=== PATIENT | female | born 1945 | race Caucasian/White ===

== ENCOUNTER 2023-12-03 11:36 | Outpatient (CLI) | payer MEDICARE, SELFPAY ==
--- NOTE | ~2023-12-03 | XR_ITS ---
Right Knee Technique: AP, lateral, and sunrise views were obtained. Clinical History: Pain Findings: No fracture or dislocation is seen. Right knee arthroplasty in place. No hardware complicat ion is evident. Soft tissues are unremarkable. No joint effusion is seen. Impression: No acute abnormality. Right knee arthroplasty in place. Reviewed, dictated and finalized at location . D ADMINISTRATIVE ASSISTANT Impression: No acute abnormality. Right knee arthroplasty in place.
--- NOTE | ~2023-12-03 | XR_ITS ---
Left Knee Technique: AP, lateral, and sunrise views were obtained. Clinical History: Pain Findings: No fracture or dislocation is seen. There is moderate to advanced tricompartmental degenera tive change.. Soft tissues are unremarkable. No joint effusion is seen. Impression: Moderate to advanced tricompartmental osteoarthritis. Reviewed, dictated and finalized at location . ENT CONSUMER MARKETER Impression: Moderate to advanced tricompartmental osteoarthritis.
--- NOTE | ~2023-12-03 | XR_ITS ---
XR hip LT min 2V DATE: 12/03/2023 12:25 INDICATION: Left hip pain. Neuropathy, ataxia for 3 months. TECHNIQUE: AP and lateral views of left hip COMPARISON: None FINDINGS: There is prominent joint space narrowing and spurring consistent with severe left hip prima ry osteoarthritis. No fracture or dislocation, avascular necrosis or bone destruction is detected. IMPRESSION: Moderately severe left hip osteoarthritis Reviewed, dictated and finalized at location L. MBLY CLEANER
== END 2023-12-03 11:37 | disposition home or self-care (01) ==
PROVIDERS: PCP Internal Medicine; Visit Provider Internal Medicine
DX: R27.0 Ataxia, unspecified (principal); M26.629 Arthralgia of temporomandibular joint, unspecified side; G60.9 Hereditary and idiopathic neuropathy, unspecified; Z96.651 Presence of right artificial knee joint; M17.12 Unilateral primary osteoarthritis, left knee; M16.12 Unilateral primary osteoarthritis, left hip
CPT/HCPCS: 73502; 73562

== ENCOUNTER 2023-12-10 08:00 | Outpatient (CLI) | payer MEDICARE, SELFPAY ==
--- NOTE | ~2023-12-10 | MR_ITS ---
MRI of the brain Clinical History: Ataxia Technique: Axial and sagittal T1-weighted images were acquired. These were followed by axial T2-weigh scarlett, diffusion weighted, gradient, and FLAIR images. Findings: There is no acute infarct, intracranial hemorrhage or mass lesion. There is extensive chron ic white matter changes of the periventricular white matter and swapna. Ventricles and subarachnoid spaces are unremarkable. Orbits are unremarkable. Paranasal sinuses and m astoid air cells are clear. Major intracranial flow voids are intact. Sagittal midline structures are intact. IMPRESSION: No acute infarct, intracranial hemorrhage, mass lesion. Extensive chronic microvascular ischemic changes. Reviewed, dictated and finalized at location M. LS ANALYST
== END 2023-12-10 08:01 | disposition home or self-care (01) ==
LOC: CHSIMG 08:02
PROVIDERS: PCP Internal Medicine; Visit Provider Internal Medicine
DX: R27.0 Ataxia, unspecified (principal); G62.9 Polyneuropathy, unspecified
CPT/HCPCS: 70551

== ENCOUNTER 2024-06-28 07:22 | Outpatient (NON) | payer MEDICARE, SELFPAY | END 2024-06-28 07:23 | disposition home or self-care (01) | PROVIDERS: PCP Internal Medicine; Visit Provider Internal Medicine Gastroenterology | DX: K52.832 Lymphocytic colitis (principal) | CPT/HCPCS: 88305 ==

== ENCOUNTER 2024-06-28 07:33 | Day surgery (SDC) | payer MEDICARE, SELFPAY ==
[2024-05-20 11:06] VITALS: BMI 26.5
[2024-06-20 09:52] VITALS: BMI 24.1
--- NOTE | 2024-06-27 12:56 | PM.HPGS ---
History of Present Illness History of Present Illness Consent: Risks, benefits, and alternatives have been discussed and questions answered. Patient agrees to proceed with procedure. Chief complaint: Diarrhea Narrative: Charu Miguel is a 78 year old female with diarrhea several times a day for the past Several months. She controls it by taking Imodium daily. She denies seeing blood in her stools. There has not been any change in medications. Review of Systems Review of Systems: All systems reviewed & are unremarkable except as noted in HPI and below PMFSH Past Medical History Medical History Afib Surgical History Surgical History History of cataract extraction History of partial hysterectomy History of right knee joint replacement ~2016 Family History Family History Father Diabetes mellitus Scleroderma Polio Mother No problems noted. Social History Social History Smoking status: Never smoker Second hand tobacco smoke exposure: Yes Alcohol intake: former Alcohol use details: hasn't drank since dx afib Substance use: never Substance use type: does not use Do You Feel Safe in your Home?: Yes Lack of Transportation: No Lack of Food: Never True Current Housing: I Have Housing Concerned About Future Housing: No Difficulty Paying Gas/Electric Bills: No Difficulty Paying for Meds: No Currently Unemployed: No Education: Master's Degree or Higher Difficulty w/ Childcare or Family Care: No Living arrangements: with family Occupation/Education: retired 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 Gender identity (if verbalized by the patient): Female Spiritual care concerns: No Meds Home Medications and Allergies Home Medications Medication Instructions Recorded Confirmed Type aspirin 81 mg capsule 81 mg PO DAILY 02/17/24 06/28/24 History metoprolol succinate 25 mg 25 mg PO DAILY 02/17/24 06/28/24 History tablet,extended release 24 hr [id number]-[id number] 5 mg-zeaxanth 1 cap PO DAILY 02/17/24 06/28/24 History 1 mg-bilberry 7.5 mg-herbal capsule (Macular Health Formula) multivitamin with minerals (Grant 1 tablet PO DAILY 02/17/24 06/28/24 History Multiple/Chelated Mineral tablet) tramadol 50 mg tablet 50 mg PO Q6H PRN pain #40 tabs 06/02/24 06/28/24 Rx Allergies Allergy/AdvReac Type Severity Reaction Status Date / Time Sulfa (Sulfonamide Allergy Severe Anaphylaxis Verified 06/28/24 08:19 Antibiotics) Exam Resp: Auscultation: clear to auscultation bilaterally Cardio: Rate: regular rate Rhythm: regular rhythm GI: GI Palp: Yes Soft to palpation and No Tenderness to palpation present (GI) Assessment and Plan Assessment and plan (1) Chronic diarrhea: Code(s): K52.9 - Noninfective gastroenteritis and colitis, unspecified Status: Acute Assessment and Plan: Colonoscopy with possible biopsy or polypectomy or cautery or injection of substances.
--- NOTE | 2024-06-27 15:24 | WPDANESEPPF ---
Anes - Initial Pre Proc Eval Procedure: Operation Date: 06/28/24 09:30 Proposed Procedures p Diagnostic Colonoscopy - Wojciech Tipton MD Date/Time: 06/27/24 15:24 Surgeon: Wojciech Tipton MD Pre Op Diagnosis: Diarrhea Patient Data Age: 78 Gender: F Height: 1.73 m Weight: 72 kg Allergies Allergy/AdvReac Type Severity Reaction Status Date / Time Sulfa (Sulfonamide Allergy Severe Anaphylaxis Verified 06/28/24 08:19 Antibiotics) Home Medications Medication Instructions Recorded Confirmed Type aspirin 81 mg capsule 81 mg PO DAILY 02/17/24 06/28/24 History metoprolol succinate 25 mg 25 mg PO DAILY 02/17/24 06/28/24 History tablet,extended release 24 hr [id number] 5 mg-zeaxanth 1 cap PO DAILY 02/17/24 06/28/24 History 1 mg-bilberry 7.5 mg-herbal capsule (Macular Health Formula) multivitamin with minerals (Grant 1 tablet PO DAILY 02/17/24 06/28/24 History Multiple/Chelated Mineral tablet) tramadol 50 mg tablet 50 mg PO Q6H PRN pain #40 tabs 06/02/24 06/28/24 Rx Patient hx anesthesia problems: none Family hx anesthesia problems: none Results Review: All pre-operative results and documents have been reviewed as part of the pre-operative evaluation. [facility] Past Medical History Medical History Afib Surgical History Surgical History History of cataract extraction History of partial hysterectomy History of right knee joint replacement ~2016 Family History Family History (Updated 05/18/24 @ 08:10 by DAVIDSON Amaro) Father Diabetes mellitus Scleroderma Polio Mother No problems noted. Social History Social History (Updated 05/18/24 @ 08:12 by DAVIDSON Amaro) Smoking status: Never smoker Second hand tobacco smoke exposure: Yes Alcohol intake: former Alcohol use details: hasn't drank since dx afib Substance use: never Substance use type: does not use Do You Feel Safe in your Home?: Yes Lack of Transportation: No Lack of Food: Never True Current Housing: I Have Housing Concerned About Future Housing: No Difficulty Paying Gas/Electric Bills: No Difficulty Paying for Meds: No Currently Unemployed: No Education: Master's Degree or Higher Difficulty w/ Childcare or Family Care: No Living arrangements: with family Occupation/Education: retired 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 Informed Consent: The patient's anesthetic plan and its attendant risks and benefits were discussed with the patient/family/POA. Questions were solicited and answers provided to the satisfaction of the patient/family/POA.
[2024-06-28 08:20] VITALS: BP 152/84; PULSE 61; RESP 16; TEMP 36.7; O2SAT 99
[2024-06-28] MEDS: LACTATED RINGERS 1,000 ML 150 ML IV CONT (08:26)
[2024-06-28 09:50] VITALS: BP 98/58; PULSE 60; RESP 18; O2SAT 98
--- NOTE | 2024-06-28 09:53 | WPDANESPN ---
Anes - Prog Note Post-Op Date/Time: 06/28/24 09:53 Cardiovascular status: normal Respiratory status: normal Airway patency: baseline Mental status: baseline Post-Op hydration status: normal Vital Signs: Last Vital Signs Temp 36.7 C 06/28/24 08:20 Pulse 61 06/28/24 08:20 Resp 16 06/28/24 08:20 BP 152/84 H 06/28/24 08:20 Pulse Ox 99 06/28/24 08:20 O2 Del Method Room Air 06/28/24 08:20 Pain Score (VAS): 0 I/O: Intake & Output 06/27/24 06/28/24 06/28/24 23:59 07:59 15:59 Intake Total 300 Balance 300 Post-procedural complaints: none Patient Feedback: Patient satisfied with anesthetic care. Other Findings: Patient vital signs back to baseline. Patient denies nausea and vomiting. Patient's pain under control. Patient OK for discharge.
[2024-06-28 10:00] VITALS: BP 103/60; PULSE 55; RESP 16; O2SAT 98
[2024-06-28 10:10] VITALS: BP 141/82; PULSE 58; RESP 16; O2SAT 98
== END 2024-06-28 10:36 | disposition home or self-care (01) ==
PROVIDERS: PCP Internal Medicine; Visit Provider Internal Medicine Gastroenterology
PROC: 0DJD8ZZ Inspection of Lower Intestinal Tract, Via Natural or Artificial Opening Endoscopic (ICD-10-PCS; CPT 45378; principal; 2024-06-28 09:30)
DX: K59.1 Functional diarrhea (principal); K57.30 Diverticulosis of large intestine without perforation or abscess without bleeding; K64.8 Other hemorrhoids
CPT/HCPCS: 45380

== ENCOUNTER 2024-08-01 14:57 | Outpatient (CLI) | payer MEDICARE, SELFPAY ==
[2024-08-01 15:31] LABS: Appearance Urine Clear (Clear); Bilirubin Urine Negative (Negative); Blood Urine Negative (Negative); Color Urine Dark Yellow (Yellow); Glucose Urine UA Negative (Negative); Ketones Urine Negative (Negative); Nitrate Urine Negative (Negative); Protein Urine Negative (Negative); Urobilinogen Urine 0.2 mg/dL (0.2-1.0)
[2024-08-01 15:43] LABS: Add Urine Microscopic? NO; Leukocyte Esterase Ur Negative LEU/UL (Negative)
[2024-08-01 16:21] LABS: Thyroid Stimulating Hormone 1.18 uIU/mL (0.36-3.74); Vitamin B12 473 pg/mL (193-986)
[2024-08-04 03:37] LABS: Vitamin B6 87.1 ng/mL (2.1-21.7)
== END 2024-08-01 14:58 | disposition home or self-care (01) ==
PROVIDERS: PCP Internal Medicine; Visit Provider Psychiatry & Neurology Neurology
DX: R41.3 Other amnesia (principal)
CPT/HCPCS: 36415; 81003; 82607; 84207; 84443

== ENCOUNTER 2024-08-18 13:59 | Outpatient (CLI) | payer MEDICARE, SELFPAY ==
[2024-08-18 15:55] LABS: Basophils Absolute Auto 0.1 K/mm3 (0.0-0.1); Basophils Percent Auto 1.1 % (0.2-1.2); Eosinophils Absolute Auto 0.2 K/mm3 (0-0.3); Eosinophils Percent Auto 2.7 % (0-4.4); Hematocrit 40.2 % (37.0-47.0); Immature Granulocyte Absolute 0.01 K/mm3 (0.00-0.031); Immature Granulocyte Percent A 0.2 % (0-0.5); Lymphocytes Absolute Auto 1.64 K/mm3 (0.9-3.2); Lymphocytes Percent Auto 24.7 % (18.3-44.2); Mean Corpuscular HGB Conc 32.3 g/dl (32-36); Mean Corpuscular Hemoglobin 30.4 pg (26-34); Mean Corpuscular Volume 93.9 fl (80-100); Mean Platelet Volume 9.6 fl (7.4-10.4); Monocytes Absolute Auto 0.8 K/mm3 (0.1-0.6); Monocytes Percent Auto 12.3 % (2.6-8.5); Neutrophils Absolute Auto 3.9 K/mm3 (1.3-6.7); Platelet Count Result 257 k/mm3 (150-375); Red Blood Count 4.28 M/mm3 (4.2-5.4); Red Cell Distribution Width 13.5 % (11.5-14.5); White Blood Count 6.7 K/mm3 (4.5-10.0)
[2024-08-18 16:27] LABS: Albumin Level 4.2 g/dL (3.5-5.1); Anion Gap 5 mmol/L (4-12); Blood Urea Nitrogen 16 mg/dL (7-17); Calcium 9.2 mg/dL (8.4-10.2); Carbon Dioxide 30 mmol/L (22-30); Chloride 104 mmol/L (98-107); Estimated Glomerular Filt Rate 60; Glucose 100 mg/dL (65-110); Potassium 3.8 mmol/L (3.4-5.0); Sodium 139 mmol/L (137-145)
[2024-08-18 16:32] LABS: Platelet Estimate Adequate (Adequate)
[2024-08-18 16:33] LABS: Ovalocytes 1+; Schistocytes None Seen
[2024-08-18 18:29] LABS: Urine Cotinine NEGATIVE
[2024-08-18 21:09] LABS: Hemoglobin A1C 5.6 % (<5.7)
== END 2024-08-18 14:00 | disposition home or self-care (01) ==
PROVIDERS: PCP Internal Medicine; Visit Provider Orthopaedic Surgery
DX: M17.12 Unilateral primary osteoarthritis, left knee (principal); Z01.818 Encounter for other preprocedural examination
CPT/HCPCS: 80048; 80307; 82040; 83036; 85025; 87081